=== PATIENT | female | born 1950 | race Caucasian/White ===

== ENCOUNTER 2020-05-01 09:10 | Inpatient (IN) | payer MEDICARE, OTHER ==
[~2020-05-01] VITALS: Ht 162.6 cm; Wt 64.6 kg
[~2020-05-01 09:10] MED LIST: ACIDOPHILUS1 EAC2 PO; AMLODIPINE BESY10 MG PO; AMLODIPINE BESYL5 MG PO; ARICEPT5 MG PO; AURYXIA210 MG PO; CLARITIN10 MG PO; CRESTOR20 MG PO; DIALYVITE 8000.8 MG PO; FOLIC ACID 1 MG1 MG PO; FOLIC ACID1 MG PO; HYTRIN CAP 1 MG1 MG PO; IRON325 M1 PO; ISORDIL TAB 1010 MG PO; MELATONIN10 M2 PO; MIRALAX17 GM PO; NAMENDA10 MG PO; NITROSTAT0.4 MG SL; NORCO 10-325 T1 EACH PO; NORVASC10 MG PO; NOVOLOG MI100 UNIT/1 SC; OMEPRAZOLE20 MG PO; PHENERGAN 12.12.5 M1 PO; PLAVIX 75 MG TA75 MG PO; REGLAN5 MG PO; SENNA8.6 MG PO; TRESIBA FL100 UNIT/1 SQ; VITAMIN D3125 MC1 PO; VITAMIN D35000 UNI1 PO; ZANTAC 150 MG150 MG PO; ZETIA10 MG PO; ZOFRAN 4 MG TAB4 MG PO; ZOLOFT100 MG PO
[2020-05-01 10:25] LABS: HEMOGLOBIN 11.3 gm/dl (12.3-15.3); RED BLOOD COUNT 3.86 M/UL (4.00-5.10); WHITE BLOOD COUNT 10.4 K/UL (4.5-11.0)
[2020-05-01] MEDS ORDERED: MIRTAZAPINE15 MG PO (12:49)
[2020-05-01] MEDS ORDERED: PANTOPRAZOLE SO20 MG PO (12:49)
[2020-05-01] MEDS ORDERED: VENTOLIN HFA 66.7 GM INH (12:50)
[2020-05-01] MEDS ORDERED: MACROBID 100 M100 MG PO (12:50)
[2020-05-01] MEDS ORDERED: RENVELA2.4 GM PO (12:51)
[2020-05-01] MEDS ORDERED: NITROGLYCERIN0.4 MG SL (12:52)
[2020-05-01] MEDS ORDERED: VOLTAREN ARTHRI20 GM TOP (13:34)
[2020-05-01] MEDS ORDERED: PROTONIX20 MG PO (13:36)
[2020-05-01] MEDS ORDERED: NOVOLOG FL100 UNIT/1 INJ (13:42)
[2020-05-01] MEDS ORDERED: TRESIBA FL100 UNIT/1 SC (13:43)
[2020-05-01] MEDS ORDERED: AMLODIPINE BESY10 MG PO (13:43)
[2020-05-01] MEDS ORDERED: FEROSUL325 MG PO (13:44)
[2020-05-01] MEDS ORDERED: DOCUSATE SODIU100 MG PO (13:46)
[2020-05-01] MEDS ORDERED: RANITIDINE PO (13:46)
[2020-05-01] MEDS ORDERED: SENNA8.6 MG PO (13:47)
[2020-05-01] MEDS ORDERED: VITAMIN D3125 MCG PO (13:50)
[2020-05-01] MEDS ORDERED: ECOTRIN81 MG PO (13:51)
[2020-05-01] MEDS ORDERED: ZOFRAN ODT 4 MG4 MG PO (14:04)
[2020-05-02 08:38] LABS: HEMOGLOBIN 10.8 gm/dl (12.3-15.3); RED BLOOD COUNT 3.78 M/UL (4.00-5.10); WHITE BLOOD COUNT 9.3 K/UL (4.5-11.0)
[2020-05-03 14:45] LABS: HEMOGLOBIN 9.6 gm/dl (12.3-15.3); WHITE BLOOD COUNT 7.6 K/UL (4.5-11.0)
[2020-05-03 14:46] LABS: RED BLOOD COUNT 3.26 M/UL (4.00-5.10)
--- NOTE | 2020-05-04 05:28 | NUR ---
PT'S DAUGHTER CAME OUT AND STATED PT WAS COMPLAINING OF CHEST PAIN. I WENT INTO THE ROOM AND ASKED THE PT WHERE SHE WAS HAVING PAIN. SHE STATED HER CHEST. I THEN WENT AND CALLED DR ADKINS; HE ORDERED NITRO, EKG AND CARDIAC LABS. VITAL SIGNS WERE STABLE, NSR ON TELE AND HR OF 77 THE PTS DAUGHTER THEN CAME OUT AND STATED THE PT WANTED SOME FOOD I HAD PUT INTO THE REFRIGERATOR FOR HER EARLIER. THE DAUGHTER CAME BACK OUT AND SAID THE PT WAS NO LONGER HAVING CHEST PAIN THAT SHE BELCHED A FEW TIMES AND IT WAS GONE.
[2020-05-04 10:01] LABS: HEMOGLOBIN 10.1 gm/dl (12.3-15.3); RED BLOOD COUNT 3.41 M/UL (4.00-5.10); WHITE BLOOD COUNT 7.3 K/UL (4.5-11.0)
[2020-05-07] MEDS ORDERED: TRESIBA FL100 UNIT/1 SC (15:09)
[2020-05-07] MEDS ORDERED: NOVOLOG FL100 UNIT/1 INJ (15:09)
[2020-10-25] MEDS ORDERED: ACIDOPHILUS1 EAC4 PO (15:31)
[2020-11-05] MEDS ORDERED: EXELON1 EACH TOP (15:25)
== END 2020-05-07 17:42 | disposition home health service (06) | DRG 91 ==
LOC: ER1 09:10 → ZEROF 11:30 → M/S 11:30
PROVIDERS: Physician Assistant; Physician Assistant Medical; ADMIT Internal Medicine
DX: G92 Toxic encephalopathy (principal); N18.6 End stage renal disease; I50.33 Acute on chronic diastolic (congestive) heart failure; E87.2 Acidosis; I13.2 Hypertensive heart and chronic kidney disease with heart failure and with stage 5 chronic kidney disease, or end stage renal disease; Z20.828 Contact with and (suspected) exposure to other viral communicable diseases; E87.5 Hyperkalemia; F03.90 Unspecified dementia, unspecified severity, without behavioral disturbance, psychotic disturbance, mood disturbance, and anxiety; E11.43 Type 2 diabetes mellitus with diabetic autonomic (poly)neuropathy; K31.84 Gastroparesis; I25.10 Atherosclerotic heart disease of native coronary artery without angina pectoris; E78.5 Hyperlipidemia, unspecified; E11.22 Type 2 diabetes mellitus with diabetic chronic kidney disease; F41.9 Anxiety disorder, unspecified; F32.9 Major depressive disorder, single episode, unspecified; M19.90 Unspecified osteoarthritis, unspecified site; G47.30 Sleep apnea, unspecified; J44.9 Chronic obstructive pulmonary disease, unspecified; I16.0 Hypertensive urgency; M51.36 Other intervertebral disc degeneration, lumbar region; H35.30 Unspecified macular degeneration; Z88.1 Allergy status to other antibiotic agents; Z88.2 Allergy status to sulfonamides; Z91.15 Patient's noncompliance with renal dialysis; Z99.81 Dependence on supplemental oxygen; Z95.5 Presence of coronary angioplasty implant and graft; Z99.2 Dependence on renal dialysis; Z87.442 Personal history of urinary calculi; Z88.8 Allergy status to other drugs, medicaments and biological substances; Z87.891 Personal history of nicotine dependence; Z83.3 Family history of diabetes mellitus; Z91.041 Radiographic dye allergy status; Z79.02 Long term (current) use of antithrombotics/antiplatelets; Z79.82 Long term (current) use of aspirin; Z79.4 Long term (current) use of insulin; Z79.899 Other long term (current) drug therapy
CPT/HCPCS: 70450; 71045; 80048; 80053; 81001; 82140; 82550; 82553; 82803; 82962; 83735; 83874; 84484; 85025; 85027; 87086; 90935; 90937; 93005; 94640; 94760; 96365; 97110-GP-CQ; 97116-GP-CQ; 97162; 97166; 99285; J0696; J1630; J3486; J7030; U0002

== ENCOUNTER 2020-11-22 08:33 | Inpatient (IN) | payer MEDICARE, OTHER ==
[~2020-11-22] VITALS: Ht 162.6 cm; Wt 54.7 kg
[~2020-11-22 08:33] MED LIST changes: +ACIDOPHILUS1 EAC4 PO; +DOCUSATE SODIU100 MG PO; +ECOTRIN81 MG PO; +EXELON1 EACH TOP; +FEROSUL325 MG PO; +MACROBID 100 M100 MG PO; +MIRTAZAPINE15 MG PO; +NITROGLYCERIN0.4 MG SL; +NOVOLOG FL100 UNIT/1 INJ; +PANTOPRAZOLE SO20 MG PO; +PROTONIX20 MG PO; +RANITIDINE PO; +RENVELA2.4 GM PO; +TRESIBA FL100 UNIT/1 SC; +VENTOLIN HFA 66.7 GM INH; +VITAMIN D3125 MCG PO; +VOLTAREN ARTHRI20 GM TOP; +ZOFRAN ODT 4 MG4 MG PO
[2020-11-22 09:41] LABS: HEMOGLOBIN 11.3 gm/dl (12.3-15.3); RED BLOOD COUNT 3.86 M/UL (4.00-5.10)
[2020-11-22] MEDS ORDERED: MIRALAX 119 GR119 GM PO (15:32)
[2020-11-23 02:30] LABS: HEMOGLOBIN 9.9 gm/dl (12.3-15.3); RED BLOOD COUNT 3.44 M/UL (4.00-5.10); WHITE BLOOD COUNT 11.3 K/UL (4.5-11.0)
[2020-11-24 02:46] LABS: HEMOGLOBIN 10.6 gm/dl (12.3-15.3); RED BLOOD COUNT 3.61 M/UL (4.00-5.10)
[2020-11-24 09:30] LABS: HBSAG SCREEN Negative (Negative); HEP A AB, IGM Negative (Negative); HEP B CORE AB, IGM Negative (Negative); HEP C VIRUS AB <0.1 (0.0-0.9)
[2020-11-25 07:58] LABS: HEMOGLOBIN 10.3 gm/dl (12.3-15.3); RED BLOOD COUNT 3.54 M/UL (4.00-5.10); WHITE BLOOD COUNT 10.7 K/UL (4.5-11.0)
[2020-11-26 07:32] LABS: HEMOGLOBIN 9.5 gm/dl (12.3-15.3); RED BLOOD COUNT 3.25 M/UL (4.00-5.10); WHITE BLOOD COUNT 8.9 K/UL (4.5-11.0)
[2020-11-26] MEDS ORDERED: LEVOFLOXACIN250 MG PO (14:54)
== END 2020-11-26 19:30 | disposition home health service (06) | DRG 177 ==
LOC: ER1 08:33 → CDU 10:54 → PROG CARE 10:54
PROVIDERS: Emergency Medicine; Internal Medicine; Internal Medicine Nephrology; Physician Assistant; ADMIT Internal Medicine
PROC: 5A1D70Z Performance of Urinary Filtration, Intermittent, Less than 6 Hours Per Day (ICD-10-PCS; principal; 2020-11-22)
PROC: 5A1D70Z Performance of Urinary Filtration, Intermittent, Less than 6 Hours Per Day (ICD-10-PCS; 2020-11-24)
PROC: 5A1D70Z Performance of Urinary Filtration, Intermittent, Less than 6 Hours Per Day (ICD-10-PCS; 2020-11-26)
DX: J15.6 Pneumonia due to other Gram-negative bacteria (principal); N18.6 End stage renal disease; J96.01 Acute respiratory failure with hypoxia; I50.33 Acute on chronic diastolic (congestive) heart failure; I13.2 Hypertensive heart and chronic kidney disease with heart failure and with stage 5 chronic kidney disease, or end stage renal disease; Z20.822 Contact with and (suspected) exposure to COVID-19; E87.1 Hypo-osmolality and hyponatremia; R64 Cachexia; J44.0 Chronic obstructive pulmonary disease with (acute) lower respiratory infection; K58.9 Irritable bowel syndrome, unspecified; M19.90 Unspecified osteoarthritis, unspecified site; D63.1 Anemia in chronic kidney disease; G47.33 Obstructive sleep apnea (adult) (pediatric); E11.22 Type 2 diabetes mellitus with diabetic chronic kidney disease; K21.9 Gastro-esophageal reflux disease without esophagitis; I25.10 Atherosclerotic heart disease of native coronary artery without angina pectoris; F32.9 Major depressive disorder, single episode, unspecified; R13.10 Dysphagia, unspecified; E87.6 Hypokalemia; F03.90 Unspecified dementia, unspecified severity, without behavioral disturbance, psychotic disturbance, mood disturbance, and anxiety; R53.81 Other malaise; F41.9 Anxiety disorder, unspecified; Z79.01 Long term (current) use of anticoagulants; Z79.82 Long term (current) use of aspirin; Z91.15 Patient's noncompliance with renal dialysis; Z87.440 Personal history of urinary (tract) infections; Z88.6 Allergy status to analgesic agent; Z88.1 Allergy status to other antibiotic agents; Z88.8 Allergy status to other drugs, medicaments and biological substances; Z82.49 Family history of ischemic heart disease and other diseases of the circulatory system; Z87.442 Personal history of urinary calculi; Z95.5 Presence of coronary angioplasty implant and graft; Z79.4 Long term (current) use of insulin; Z68.20 Body mass index [BMI] 20.0-20.9, adult
CPT/HCPCS: 36415; 36600; 70450; 71045; 80048; 80053; 80074; 80202; 82550; 82553; 82803; 82962; 83605; 83874; 83880; 84484; 85025; 85027; 87040; 90937; 93005; 94640; 94664; 94760; 96374; 97162; 97166; 99285; G0257; J0696; J1644; J1756; J1940; J2060; J2185; J2930; J3370; J7070; Q0177; U0002

== ENCOUNTER 2021-04-08 02:16 | Inpatient (IN) | payer MEDICARE, OTHER ==
[~2021-04-08] VITALS: Ht 162.6 cm; Wt 50.3 kg
[~2021-04-08 02:16] MED LIST changes: -ACIDOPHILUS1 EAC4 PO; -DOCUSATE SODIU100 MG PO; +HYDROCODON-ACE1 EAC2 PO; +LEVOFLOXACIN250 MG PO; +MIRALAX 119 GR119 GM PO; -MIRTAZAPINE15 MG PO; -NITROGLYCERIN0.4 MG SL; -NORCO 10-325 T1 EACH PO; -PROTONIX20 MG PO; -VOLTAREN ARTHRI20 GM TOP; -ZOFRAN ODT 4 MG4 MG PO
[2021-04-08 03:29] LABS: HEMOGLOBIN 10.6 gm/dl (12.3-15.3); RED BLOOD COUNT 3.5 M/UL (4.00-5.10); WHITE BLOOD COUNT 20.9 K/UL (4.5-11.0)
[2021-04-08] MEDS ORDERED: MIRTAZAPINE15 MG PO (12:49)
[2021-04-08] MEDS ORDERED: NITROGLYCERIN0.4 MG SL (12:52)
[2021-04-08] MEDS ORDERED: VOLTAREN ARTHRI20 GM TOP (13:34)
[2021-04-08] MEDS ORDERED: PROTONIX20 MG PO (13:36)
[2021-04-08] MEDS ORDERED: DOCUSATE SODIU100 MG PO (13:46)
[2021-04-08] MEDS ORDERED: ZOFRAN ODT 4 MG4 MG PO (14:04)
[2021-04-08] MEDS ORDERED: ACIDOPHILUS1 EAC4 PO (15:31)
[2021-04-08] MEDS ORDERED: TRESIBA FL100 UNIT/1 INJ (18:15)
[2021-04-08] MEDS ORDERED: MELATONIN5 M2 PO (18:23)
[2021-04-08] MEDS ORDERED: AMLODIPINE BESY10 MG PO (18:24)
[2021-04-09 04:43] LABS: HEMOGLOBIN 8.2 gm/dl (12.3-15.3); RED BLOOD COUNT 2.71 M/UL (4.00-5.10); WHITE BLOOD COUNT 13.3 K/UL (4.5-11.0)
[2021-04-10 04:01] LABS: HEMOGLOBIN 8.4 gm/dl (12.3-15.3); RED BLOOD COUNT 2.82 M/UL (4.00-5.10); WHITE BLOOD COUNT 14.7 K/UL (4.5-11.0)
[2021-04-11 04:06] LABS: HEMOGLOBIN 8.9 gm/dl (12.3-15.3); RED BLOOD COUNT 2.94 M/UL (4.00-5.10); WHITE BLOOD COUNT 11.1 K/UL (4.5-11.0)
[2021-04-11 14:09] LABS: HBSAG SCREEN Negative (Negative); HEP A AB, IGM Negative (Negative); HEP B CORE AB, IGM Negative (Negative); HEP C VIRUS AB <0.1 (0.0-0.9)
[2021-04-12 03:59] LABS: HEMOGLOBIN 9.5 gm/dl (12.3-15.3); RED BLOOD COUNT 3.17 M/UL (4.00-5.10); WHITE BLOOD COUNT 13.1 K/UL (4.5-11.0)
[2021-04-13 03:37] LABS: HEMOGLOBIN 8.9 gm/dl (12.3-15.3); RED BLOOD COUNT 2.98 M/UL (4.00-5.10); WHITE BLOOD COUNT 13.6 K/UL (4.5-11.0)
[2021-04-14 03:30] LABS: HEMOGLOBIN 8.2 gm/dl (12.3-15.3); RED BLOOD COUNT 2.7 M/UL (4.00-5.10); WHITE BLOOD COUNT 12.7 K/UL (4.5-11.0)
--- NOTE | 2021-04-15 10:35 | NUR ---
PT LEFT TO HAVE B SWALLOW TEST AT THIS TIME NOTED
--- NOTE | 2021-04-15 11:26 | NUR ---
PT Bck from [facility] and now gone to dialysis
[2021-04-16 08:35] LABS: HEMOGLOBIN 9.3 gm/dl (12.3-15.3)
[2021-04-16 08:38] LABS: RED BLOOD COUNT 3.16 M/UL (4.00-5.10); WHITE BLOOD COUNT 7.9 K/UL (4.5-11.0)
[2021-04-17 03:49] LABS: HEMOGLOBIN 10.6 gm/dl (12.3-15.3); WHITE BLOOD COUNT 8.1 K/UL (4.5-11.0)
[2021-04-17 03:52] LABS: RED BLOOD COUNT 3.51 M/UL (4.00-5.10)
[2021-04-18 03:51] LABS: HEMOGLOBIN 10.6 gm/dl (12.3-15.3); RED BLOOD COUNT 3.44 M/UL (4.00-5.10); WHITE BLOOD COUNT 7.4 K/UL (4.5-11.0)
[2021-04-19 08:19] LABS: HEMOGLOBIN 10.3 gm/dl (12.3-15.3); RED BLOOD COUNT 3.35 M/UL (4.00-5.10); WHITE BLOOD COUNT 10.8 K/UL (4.5-11.0)
[2021-04-20 09:35] LABS: HEMOGLOBIN 10.1 gm/dl (12.3-15.3); RED BLOOD COUNT 3.4 M/UL (4.00-5.10); WHITE BLOOD COUNT 11.4 K/UL (4.5-11.0)
[2021-04-21 08:15] LABS: HEMOGLOBIN 10.3 gm/dl (12.3-15.3); RED BLOOD COUNT 3.45 M/UL (4.00-5.10)
[2021-04-21 08:16] LABS: WHITE BLOOD COUNT 15.6 K/UL (4.5-11.0)
[2021-04-22 16:48] LABS: RED BLOOD COUNT 3.57 M/UL (4.00-5.10); WHITE BLOOD COUNT 12.1 K/UL (4.5-11.0)
[2021-04-23 09:10] LABS: HEMOGLOBIN 10.1 gm/dl (12.3-15.3); RED BLOOD COUNT 3.37 M/UL (4.00-5.10); WHITE BLOOD COUNT 9.2 K/UL (4.5-11.0)
--- NOTE | 2021-04-24 02:15 | NUR ---
changed ileostomy and emptied bag, gave partial bed bath, changed sheets, changed gown, patient resting
--- NOTE | 2021-04-24 04:01 | NUR ---
assumed care to this paient at this time
[2021-04-24 08:16] LABS: HEMOGLOBIN 10.4 gm/dl (12.3-15.3); RED BLOOD COUNT 3.51 M/UL (4.00-5.10); WHITE BLOOD COUNT 9.9 K/UL (4.5-11.0)
--- NOTE | 2021-04-25 14:38 | NUR ---
ABDOMINAL MIDLINE ROSA MARIA REMOVED AND ROBERT DRAIN REMOVED PER DR VIZCAINO VERBAL ORDER. NO COMPLICATIONS. PT TOLERATED WELL. SITE APPEARS TO BE SCABBED AND HEALING. ROBERT SITE COVERED WITH 2X2 AND TAPE. ABD BINDER PLACED BACK ON PATIENT. CENTRAL LINE DRESSING ALSO CHANGED. WCTM.
[2021-04-26 07:30] LABS: HEMOGLOBIN 11.1 gm/dl (12.3-15.3); RED BLOOD COUNT 3.74 M/UL (4.00-5.10); WHITE BLOOD COUNT 11.1 K/UL (4.5-11.0)
[2021-04-27 08:14] LABS: HEMOGLOBIN 12.1 gm/dl (12.3-15.3); RED BLOOD COUNT 3.98 M/UL (4.00-5.10); WHITE BLOOD COUNT 12.5 K/UL (4.5-11.0)
--- NOTE | 2021-04-29 10:18 | NUR ---
PT LEFT TO DIALYSIS AT THIS TIME NOTED
--- NOTE | 2021-04-29 17:31 | NUR ---
REPORT GIVEN TO BE FLOWERSDIRECTOR TALENT MANAGEMENT TOOK PT TO [id number] VIA BED
[2021-04-30 11:56] LABS: RED BLOOD COUNT 3.13 M/UL (4.00-5.10); WHITE BLOOD COUNT 21.7 K/UL (4.5-11.0)
[2021-04-30 12:03] LABS: HEMOGLOBIN 9.5 gm/dl (12.3-15.3)
[2021-04-30] MEDS ORDERED: MEGACE 400400 MG/10 PO (16:23)
[2021-04-30] MEDS ORDERED: MEROPENEM500 MG IV (17:01)
--- NOTE | 2021-04-30 17:10 | NUR ---
report given to Yesenia admitting nurse @ [facility]
--- NOTE | 2021-04-30 17:14 | NUR ---
notified daughter-Tata of patient bed available for [facility]
[2021-05-01 22:34] LABS: ACINETOBACTER BAUMANNII Not Detected (Negative); CANDIDA ALBICANS Not Detected (Negative); CANDIDA KRUSEI Not Detected (Negative); CANDIDA TROPICALIS Not Detected (Negative); ENTEROCOCCUS Not Detected (Negative); ESCHERICHIA COLI Not Detected (Negative); HAEMOPHILUS INFLUENZAE Not Detected (Negative); KLEBSIELLA OXYTOCA Not Detected (Negative); KLEBSIELLA PNEUMONIAE Not Detected (Negative); KPC-CARBAPENEM-RESISTANCE GENE Not Detected (Negative); PROTEUS Not Detected (Negative); PSEUDOMONAS AERUGINOSA Not Detected (Negative); SERRATIA MARCESANS Not Detected (Negative); STAPHYLOCOCCUS AUREUS Not Detected (Negative); STREP AGALACTIAE (GROUP B) Not Detected (Negative); STREP PYOGENES (GROUP A) Not Detected (Negative); STREPTOCOCCUS Not Detected (Negative); vanA/B (VANCOMYCIN RESIST GENE Not Detected (Negative)
[2021-05-02 01:04] LABS: mecA (METHICILLIN RESIST GENE DETECTED (Negative)
[2021-05-02 01:05] LABS: STAPHYLOCOCCUS DETECTED (Negative)
== END 2021-04-30 23:43 | DRG 329 ==
LOC: ER1 02:16 → PROG CARE 07:19 → CDU 07:19 → CCU 07:19 → PROG CARE 04-09 15:40 → M/S 04-29 17:29
PROVIDERS: Internal Medicine; Internal Medicine Nephrology; Physician Assistant Medical; Student in an Organized Health Care Education/Training Program; Surgery; ADMIT Internal Medicine
PROC: 0DTF0ZZ Resection of Right Large Intestine, Open Approach (ICD-10-PCS; principal; 2021-04-08 08:34)
PROC: 0D1B0Z4 Bypass Ileum to Cutaneous, Open Approach (ICD-10-PCS; 2021-04-08 08:34)
PROC: 5A1D70Z Performance of Urinary Filtration, Intermittent, Less than 6 Hours Per Day (ICD-10-PCS; 2021-04-10)
PROC: 5A1D70Z Performance of Urinary Filtration, Intermittent, Less than 6 Hours Per Day (ICD-10-PCS; 2021-04-13)
PROC: 3E03317 Introduction of Other Thrombolytic into Peripheral Vein, Percutaneous Approach (ICD-10-PCS; 2021-04-13)
PROC: 5A1D70Z Performance of Urinary Filtration, Intermittent, Less than 6 Hours Per Day (ICD-10-PCS; 2021-04-14)
PROC: 5A1D70Z Performance of Urinary Filtration, Intermittent, Less than 6 Hours Per Day (ICD-10-PCS; 2021-04-17)
PROC: 5A1D70Z Performance of Urinary Filtration, Intermittent, Less than 6 Hours Per Day (ICD-10-PCS; 2021-04-20)
PROC: 3E04317 Introduction of Other Thrombolytic into Central Vein, Percutaneous Approach (ICD-10-PCS; 2021-04-22)
PROC: 5A1D70Z Performance of Urinary Filtration, Intermittent, Less than 6 Hours Per Day (ICD-10-PCS; 2021-04-22)
PROC: 5A1D70Z Performance of Urinary Filtration, Intermittent, Less than 6 Hours Per Day (ICD-10-PCS; 2021-04-24)
PROC: 5A1D70Z Performance of Urinary Filtration, Intermittent, Less than 6 Hours Per Day (ICD-10-PCS; 2021-04-27)
PROC: 5A1D70Z Performance of Urinary Filtration, Intermittent, Less than 6 Hours Per Day (ICD-10-PCS; 2021-04-29)
DX: K63.1 Perforation of intestine (nontraumatic) (principal); N18.6 End stage renal disease; G93.41 Metabolic encephalopathy; E43 Unspecified severe protein-calorie malnutrition; K55.049 Acute infarction of large intestine, extent unspecified; F11.20 Opioid dependence, uncomplicated; K55.9 Vascular disorder of intestine, unspecified; J90 Pleural effusion, not elsewhere classified; I12.0 Hypertensive chronic kidney disease with stage 5 chronic kidney disease or end stage renal disease; E87.1 Hypo-osmolality and hyponatremia; N25.81 Secondary hyperparathyroidism of renal origin; N39.0 Urinary tract infection, site not specified; K63.2 Fistula of intestine; R78.81 Bacteremia; E87.2 Acidosis; J44.9 Chronic obstructive pulmonary disease, unspecified; D50.9 Iron deficiency anemia, unspecified; E78.5 Hyperlipidemia, unspecified; F41.9 Anxiety disorder, unspecified; E87.5 Hyperkalemia; R13.10 Dysphagia, unspecified; G89.4 Chronic pain syndrome; F32.A Depression, unspecified; F03.90 Unspecified dementia, unspecified severity, without behavioral disturbance, psychotic disturbance, mood disturbance, and anxiety; Z20.822 Contact with and (suspected) exposure to COVID-19; G47.33 Obstructive sleep apnea (adult) (pediatric); E11.22 Type 2 diabetes mellitus with diabetic chronic kidney disease; K21.9 Gastro-esophageal reflux disease without esophagitis; M54.9 Dorsalgia, unspecified; Z98.890 Other specified postprocedural states; Z95.5 Presence of coronary angioplasty implant and graft; Z88.1 Allergy status to other antibiotic agents; Z88.8 Allergy status to other drugs, medicaments and biological substances; Z79.82 Long term (current) use of aspirin; Z79.4 Long term (current) use of insulin; Z79.899 Other long term (current) drug therapy; Z83.3 Family history of diabetes mellitus; Z82.49 Family history of ischemic heart disease and other diseases of the circulatory system; Z68.22 Body mass index [BMI] 22.0-22.9, adult
CPT/HCPCS: 36415; 36556; 36600; 71045; 74022; 74230; 80048; 80053; 80074; 81001; 82140; 82803; 82962; 83605; 83735; 84100; 84132; 85025; 85027; 85610; 86850; 86900; 86901; 86920; 87040; 87077; 87150; 87186; 90935; 90937; 92526; 92610; 92611-GN; 94664; 94760; 96365; 97110-GP-CQ; 97116; 97161; 97166; 97530; 97530-GP-CQ; 99285; A6212; C1751; C9113; J0610; J1100; J1170; J1200; J1630; J1644; J2001; J2185; J2270; J2405; J2543; J2704; J2710; J2997; J3010; J7070; P9047; U0002